=== PATIENT | female | born 1955 | race Caucasian/White ===

== ENCOUNTER 2020-05-21 08:00 | Outpatient (RCR) | payer OTHER | END 2020-05-27 | LOC: WSC | DX: S42.302A Unspecified fracture of shaft of humerus, left arm, initial encounter for closed fracture (principal); S93.402A Sprain of unspecified ligament of left ankle, initial encounter ==

== ENCOUNTER 2020-08-09 08:00 | Outpatient (RCR) | payer OTHER | END 2020-08-21 | LOC: WSC | DX: S42.302A Unspecified fracture of shaft of humerus, left arm, initial encounter for closed fracture (principal); M25.532 Pain in left wrist ==